=== PATIENT | female | born 1965 | race Caucasian/White ===

== ENCOUNTER 2017-07-03 11:25 | Emergency (ER) | payer OTHER ==
[2017-07-03] MEDS: morphine 4 MG/ML VIAL IV (11:54)
[2017-07-03] MEDS: ONDANSETRON 4 MG INJ IV (11:54)
[2017-07-03] MEDS: SOD CHLORIDE 0.9% 1,000 ML IV (11:54)
[2017-07-03] MEDS: ACETAMINOPHEN 500 MG TAB PO (12:13)
[2017-07-03 12:38] LABS: ADD MAN DIFF? NO
[2017-07-03 12:42] LABS: WHITE BLOOD COUNT 6.5 10^3/ul (4.8-10.8)
[2017-07-03 12:42] LABS: BASOPHILS % 0.5 % (0.0-2.0); EOSINOPHILS # 0.1 10^3/ul (0.0-0.5); EOSINOPHILS % 1.5 % (0.0-7.0); HEMATOCRIT 40.6 % (37.0-47.0); HEMOGLOBIN 14.1 g/dl (12.0-16.0); LYMPHOCYTES # 1.7 10^3/ul (0.8-2.9); LYMPHOCYTES % 26.5 % (15.0-51.0); MEAN CORPUSCULAR HGB CONC 34.7 g/dl (32.0-37.0); MEAN CORPUSCULAR VOLUME 86.4 fl (82.0-101.0); MEAN PLATELET VOLUME 10.8 fl (7.4-10.4); MONOCYTE # 0.4 10^3/ul (0.3-0.9); MONOCYTES % 6.3 % (0.0-11.0); NEUTROPHIL # 4.2 10^3/ul (1.6-7.5); NEUTROPHILS % 64.7 % (39.0-77.0); PLATELET COUNT 261 10^3/UL (140-415); RED CELL DISTRIBUTION WIDTH 14.6 % (11.5-14.5)
[2017-07-03 12:58] LABS: ALANINE AMINOTRANSFERASE 457 IU/L (13-69); ALBUMIN 4.6 g/dl (3.3-4.9); ALBUMIN/GLOBULIN RATIO 1.31; ALKALINE PHOSPHATASE 165 IU/L (42-121); AMYLASE 68 U/L (11-123); ANION GAP 19 (8-16); ASPARTATE AMINO TRANSFERASE 193 IU/L (15-46); BILIRUBIN,INDIRECT 0.4 mg/dl (0-1.1); BILIRUBIN,TOTAL 0.4 mg/dl (0.2-1.3); BLOOD UREA NITROGEN 13 mg/dl (7-20); CALCIUM 9.6 mg/dl (8.4-10.2); CARBON DIOXIDE 21 mmol/L (21-31); CHLORIDE 111 mmol/L (97-110); CREATININE 0.67 mg/dl (0.44-1.00); GLUCOSE 126 mg/dl (70-220); LIPASE 128 U/L (23-300); POTASSIUM 4.1 mmol/L (3.5-5.1); SODIUM 147 mmol/L (135-144); TOTAL PROTEIN 8.1 g/dl (6.1-8.1)
[2017-07-03 13:02] LABS: INR 0.95; PARTIAL THROMBOPLASTIN TIME 26.3 Sec (25.0-35.0); PROTIME 12.8 Sec (11.9-14.9)
[2017-07-03 13:48] LABS: ADD UMIC YES; UR ASCORBIC ACID NEGATIVE (NEGATIVE); UR BACTERIA FEW /HPF (NONE SEEN); UR BILIRUBIN (Dip) NEGATIVE (NEGATIVE); UR BLOOD (Dip) NEGATIVE (NEGATIVE); UR CLARITY CLOUDY (CLEAR); UR COLOR YELLOW (YELLOW); UR GLUCOSE (Dip) NEGATIVE (NEGATIVE); UR KETONES (Dip) NEGATIVE (NEGATIVE); UR LEUKOCYTE ESTERASE (Dip) NEGATIVE Leu/ul (NEGATIVE); UR MUCUS MANY /HPF (NONE SEEN); UR NITRITE (Dip) NEGATIVE (NEGATIVE); UR RBC 16 /HPF (0-5); UR SPECIFIC GRAVITY (Dip) 1.016 (1.003-1.030); UR SQUAMOUS EPITHELIAL CELL MODERATE /HPF (FEW); UR TOTAL PROTEIN (Dip) NEGATIVE (NEGATIVE); UR UROBILINOGEN (Dip) NEGATIVE (NEGATIVE); UR WBC 5 /HPF (0-5)
== END 2017-07-03 14:57 | disposition home or self-care (01) ==
LOC: FTE 11:25
DX: D21.9 Benign neoplasm of connective and other soft tissue, unspecified (principal); N83.202 Unspecified ovarian cyst, left side; I10 Essential (primary) hypertension; F17.210 Nicotine dependence, cigarettes, uncomplicated; R11.2 Nausea with vomiting, unspecified
CPT/HCPCS: 74176; 76830; 76856; 80053; 81001; 81025; 82150; 83690; 85025; 85610; 85730; 87086; 96374; 96375; 99285-25

== ENCOUNTER 2017-07-05 10:35 | Emergency (ER) | payer OTHER ==
[2017-07-05] MEDS: DEXAMETHASONE 10 MG/ML 1 ML INJ IM (11:13)
[2017-07-05] MEDS: KETOROLAC 60 MG INJ IM (11:13)
== END 2017-07-05 11:45 | disposition home or self-care (01) ==
LOC: FTE 10:35
DX: M54.31 Sciatica, right side (principal); I10 Essential (primary) hypertension; F17.210 Nicotine dependence, cigarettes, uncomplicated
CPT/HCPCS: 96372; 99284-25

== ENCOUNTER 2017-09-22 08:37 | Day surgery (SDC) | payer OTHER ==
[2017-09-22] MEDS ORDERED: CEFAZOLIN 2 GM/50 ML (PMX) 50 ML IVPB (11:00)
[2017-09-22] MEDS ORDERED: SOD CHLORIDE 0.9% 1,000 ML IV (11:00)
[2017-09-22] MEDS ORDERED: MIDAZOLAM 1 MG/ML 2 ML INJ (12:16)
[2017-09-22] MEDS: POLYMYXIN/BACITRACIN 1L IRRIG (13:30)
[2017-09-22] MEDS ORDERED: GLYCOPYRROLATE 0.4 MG INJ (13:34)
[2017-09-22] MEDS ORDERED: NEOSTIGMINE 3 MG/3 ML SYRINGE (13:34)
[2017-09-22] MEDS ORDERED: ROCURONIUM 50 MG INJ (13:34)
[2017-09-22] MEDS ORDERED: PROPOFOL 20 ML (13:34)
[2017-09-22] MEDS ORDERED: LIDOCAINE 2% (SDV) 5 ML INJ (13:34)
[2017-09-22] MEDS ORDERED: CEFAZOLIN 1 GM INJ (13:35)
[2017-09-22] MEDS ORDERED: ONDANSETRON 4 MG INJ (13:35)
[2017-09-22] MEDS: BACITRACIN/POLYMYXIN 28.35 GM OINT TOP (13:49)
[2017-09-22] MEDS: BUPIVACAINE 0.25%/EPI (MDV) 50 ML VIAL INJ (13:49)
[2017-09-22] MEDS ORDERED: morphine 2 MG INJ IV (14:00)
[2017-09-22] MEDS ORDERED: ONDANSETRON 4 MG INJ IV (14:00)
[2017-09-22] MEDS ORDERED: IBUPROFEN 600 MG TAB PO (14:00)
[2017-09-22] MEDS ORDERED: KETOROLAC 30 MG INJ IV (14:00)
[2017-09-22] MEDS ORDERED: METOCLOPRAMIDE 10 MG INJ IV (14:00)
[2017-09-22] MEDS ORDERED: HYDROCODONE/APAP (5/325) TAB PO (14:00)
[2017-09-22] MEDS ORDERED: LABETALOL HCL 20MG INJ IV (14:00)
[2017-09-22] MEDS ORDERED: FENTAnyl 50 MCG/ML VIAL IV (14:00)
[2017-09-22] MEDS ORDERED: HYDROmorphONE 1 MG/5 ML IV SYRINGE IV (14:00)
[2017-09-22] MEDS ORDERED: DIPHENHYDRAMINE 50 MG INJ IV (14:00)
[2017-09-22] MEDS: ONDANSETRON 4 MG INJ IV (14:03)
[2017-09-22] MEDS: MEPERIDINE 25 MG INJ IV (14:03)
[2017-09-22] MEDS: HYDROmorphONE 1 MG/5 ML IV SYRINGE IV (14:16)
[2017-09-22] MEDS: HYDROCODONE/APAP (5/325) TAB PO (16:10)
== END 2017-09-22 17:25 | disposition home or self-care (01) ==
LOC: SDS 08:37
DX: K43.6 Other and unspecified ventral hernia with obstruction, without gangrene (principal); I10 Essential (primary) hypertension; E03.9 Hypothyroidism, unspecified; E66.9 Obesity, unspecified; Z68.29 Body mass index [BMI] 29.0-29.9, adult
CPT/HCPCS: 49561; 84703; 88302

== ENCOUNTER 2018-05-12 11:19 | Day surgery (SDC) | payer OTHER ==
[2018-05-12] MEDS ORDERED: PROPOFOL 20 ML (13:22)
[2018-05-12] MEDS ORDERED: HYDROmorphONE 1 MG/5 ML IV SYRINGE IV ×3 (13:46→14:00)
[2018-05-12] MEDS ORDERED: ONDANSETRON 4 MG INJ (13:46)
[2018-05-12] MEDS ORDERED: DIPHENHYDRAMINE 50 MG INJ IV (14:00)
[2018-05-12] MEDS ORDERED: METOCLOPRAMIDE 10 MG INJ IV (14:00)
[2018-05-12] MEDS ORDERED: OXYCODONE/ACETAMINOPHEN (5/325) TAB PO ×2 (14:00)
[2018-05-12] MEDS ORDERED: MIDAZOLAM 1 MG/ML 2 ML INJ IV (14:00)
[2018-05-12] MEDS ORDERED: FENTAnyl 50 MCG/ML VIAL IV ×3 (14:00)
[2018-05-12] MEDS ORDERED: MEPERIDINE 25 MG INJ IV (14:00)
[2018-05-12] MEDS: ONDANSETRON 4 MG INJ IV (14:15)
[2018-05-12] MEDS: HYDROmorphONE 1 MG/5 ML IV SYRINGE IV (14:15)
[2018-05-12] MEDS: METHYLPREDNISOLONE ACET 80 MG/ML 1 ML (14:25)
[2018-05-12] MEDS: LIDOCAINE 1% (MPF) 30 ML INJ (14:26)
== END 2018-05-12 15:35 | disposition home or self-care (01) ==
LOC: SDS 11:19
DX: M51.26 Other intervertebral disc displacement, lumbar region (principal); M48.061 Spinal stenosis, lumbar region without neurogenic claudication; M54.16 Radiculopathy, lumbar region; M54.30 Sciatica, unspecified side; I10 Essential (primary) hypertension; E03.9 Hypothyroidism, unspecified
CPT/HCPCS: 62323; 72020; 84703

== ENCOUNTER 2018-07-02 00:02 | Emergency (ER) | payer OTHER ==
[2018-07-02] MEDS: ONDANSETRON 4 MG INJ IV (02:15)
[2018-07-02] MEDS: morphine 4 MG/ML VIAL IV (02:16)
[2018-07-02] MEDS: SOD CHLORIDE 0.9% 500 ML IV (02:16)
[2018-07-02 02:31] LABS: ADD MAN DIFF? NO
[2018-07-02 02:33] LABS: BASOPHILS % 0.2 % (0.0-2.0); EOSINOPHILS # 0.2 10^3/ul (0.0-0.5); EOSINOPHILS % 1.1 % (0.0-7.0); HEMATOCRIT 38.7 % (37.0-47.0); HEMOGLOBIN 12.8 g/dl (12.0-16.0); LYMPHOCYTES # 1.8 10^3/ul (0.8-2.9); LYMPHOCYTES % 13.4 % (15.0-51.0); MEAN CORPUSCULAR HEMOGLOBIN 27.1 pg (29.0-33.0); MEAN CORPUSCULAR HGB CONC 33.1 g/dl (32.0-37.0); MEAN CORPUSCULAR VOLUME 81.8 fl (82.0-101.0); MEAN PLATELET VOLUME 10.5 fl (7.4-10.4); NEUTROPHIL # 10.6 10^3/ul (1.6-7.5); NEUTROPHILS % 77.9 % (39.0-77.0); PLATELET COUNT 308 10^3/UL (140-415); RED BLOOD COUNT 4.73 10^6/ul (4.20-5.40); RED CELL DISTRIBUTION WIDTH 15.9 % (11.5-14.5)
[2018-07-02 02:33] LABS: WHITE BLOOD COUNT 13.7 10^3/ul (4.8-10.8)
[2018-07-02 02:47] LABS: ADD UMIC YES; UR ASCORBIC ACID 40 mg/dL (NEGATIVE); UR BACTERIA FEW /HPF (NONE SEEN); UR BILIRUBIN (Dip) NEGATIVE (NEGATIVE); UR BLOOD (Dip) NEGATIVE (NEGATIVE); UR CLARITY CLOUDY (CLEAR); UR COLOR AMBER (YELLOW); UR GLUCOSE (Dip) NEGATIVE (NEGATIVE); UR KETONES (Dip) TRACE mg/dL (NEGATIVE); UR LEUKOCYTE ESTERASE (Dip) NEGATIVE Leu/ul (NEGATIVE); UR MUCUS MANY /HPF (NONE SEEN); UR NITRITE (Dip) NEGATIVE (NEGATIVE); UR RBC 1 /HPF (0-5); UR SPECIFIC GRAVITY (Dip) 1.032 (1.003-1.030); UR SQUAMOUS EPITHELIAL CELL FEW /HPF (FEW); UR TOTAL PROTEIN (Dip) NEGATIVE (NEGATIVE); UR UROBILINOGEN (Dip) NEGATIVE (NEGATIVE); UR WBC 1 /HPF (0-5)
[2018-07-02] MEDS: HYDROmorphONE 0.5 MG/0.5 ML SYG IV (03:22)
[2018-07-02 03:29] LABS: ALANINE AMINOTRANSFERASE 24 IU/L (13-69); ALBUMIN 4.6 g/dl (3.3-4.9); ALBUMIN/GLOBULIN RATIO 1.58; ALKALINE PHOSPHATASE 162 IU/L (42-121); ANION GAP 10 (5-13); ASPARTATE AMINO TRANSFERASE 28 IU/L (15-46); BILIRUBIN,INDIRECT 0.2 mg/dl (0-1.1); BILIRUBIN,TOTAL 0.2 mg/dl (0.2-1.3); BLOOD UREA NITROGEN 20 mg/dl (7-20); CALCIUM 9.2 mg/dl (8.4-10.2); CARBON DIOXIDE 23 mmol/L (21-31); CHLORIDE 108 mmol/L (97-110); Estimated GFR > 60 mL/min (>60); GLUCOSE 107 mg/dl (70-220); LIPASE 147 U/L (23-300); POTASSIUM 3.5 mmol/L (3.5-5.1); SODIUM 141 mmol/L (135-144); TOTAL PROTEIN 7.5 g/dl (6.1-8.1)
== END 2018-07-02 06:05 | disposition home or self-care (01) ==
LOC: E/R 00:02
DX: R10.11 Right upper quadrant pain (principal); I10 Essential (primary) hypertension; F17.210 Nicotine dependence, cigarettes, uncomplicated; R11.2 Nausea with vomiting, unspecified
CPT/HCPCS: 36415; 74176; 80053; 81001; 83690; 85025; 96374; 96375; 99285-25

== ENCOUNTER 2018-08-21 10:57 | Day surgery (SDC) | payer OTHER ==
[2018-08-21] MEDS ORDERED: CEFAZOLIN 1 GM/50 ML (PMX) 50 ML IVPB (13:00)
[2018-08-21] MEDS: LACTATED RINGER'S 1,000 ML IV (13:01)
[2018-08-21] MEDS ORDERED: IOHEXOL 300MG/ML 30 ML BTL (13:32)
[2018-08-21] MEDS ORDERED: SODIUM CL BACTERIOSTATIC 30 ML INJ (13:32)
[2018-08-21] MEDS ORDERED: MIDAZOLAM 1 MG/ML 2 ML INJ (13:36)
[2018-08-21] MEDS ORDERED: FENTAnyl 50 MCG/ML VIAL (13:36)
[2018-08-21] MEDS ORDERED: hydrALAzine 20 MG INJ IV (14:00)
[2018-08-21] MEDS ORDERED: MIDAZOLAM 1 MG/ML 2 ML INJ IV (14:00)
[2018-08-21] MEDS ORDERED: DIPHENHYDRAMINE 50 MG INJ IV (14:00)
[2018-08-21] MEDS ORDERED: EPHEDrine 25 MG/5 ML SYG IV (14:00)
[2018-08-21] MEDS ORDERED: OXYCODONE/ACETAMINOPHEN (5/325) TAB PO (14:00)
[2018-08-21] MEDS ORDERED: FENTAnyl 50 MCG/ML VIAL IV ×3 (14:00)
[2018-08-21] MEDS ORDERED: LABETALOL HCL 20MG INJ IV (14:00)
[2018-08-21] MEDS ORDERED: KETOROLAC 30 MG INJ IV (14:00)
[2018-08-21] MEDS ORDERED: ONDANSETRON 4 MG INJ IV (14:00)
[2018-08-21] MEDS: OXYCODONE/ACETAMINOPHEN (5/325) TAB PO (14:24)
[2018-08-21] MEDS: LIDOCAINE 1% (MPF) 30 ML INJ (14:33)
[2018-08-21] MEDS: METHYLPREDNISOLONE ACET 80 MG/ML 1 ML (14:34)
== END 2018-08-21 14:50 | disposition home or self-care (01) ==
LOC: SDS 10:57
DX: M48.061 Spinal stenosis, lumbar region without neurogenic claudication (principal); M47.896 Other spondylosis, lumbar region; I10 Essential (primary) hypertension; E03.9 Hypothyroidism, unspecified
CPT/HCPCS: 62322; 72020; 84703

== ENCOUNTER 2018-11-14 19:08 | Emergency (ER) | payer OTHER ==
[2018-11-14] MEDS: ACETAMINOPHEN 325 MG TAB PO (20:14)
== END 2018-11-14 22:39 | disposition home or self-care (01) ==
LOC: FTE 19:08
DX: S89.91XA Unspecified injury of right lower leg, initial encounter (principal); I10 Essential (primary) hypertension; W19.XXXA Unspecified fall, initial encounter; Y92.9 Unspecified place or not applicable
CPT/HCPCS: 73562; 99283-25